=== PATIENT | female | born 1995 | race Caucasian/White ===

== ENCOUNTER 2017-11-01 00:24 | Inpatient (IN) | payer BC, OTHER ==
[~2017-11-01] VITALS: Ht 162.6 cm; Wt 81.0 kg
[2017-11-01] VITALS (21 sets, daily range): BP systolic 104–152; BP diastolic 70–88
[2017-11-01] MEDS ORDERED: normal saline 1000ML IV soln IVB ONE (00:35)
[2017-11-01 00:46] LABS: ABG BASE EXCESS -6.6 mmol/L (-2.0-3.0); ABG HCO3 20.4 mmol/L (22.0-26.0); ABG OXYGEN SATURATION 97.6 % (95-98); ABG PH (T) 7.257 (7.350-7.450); ABG PO2 (T) 130.6 mmHg (83-108); FCOHb 1.6 % (0.5-1.5); FMetHb 0.3 % (0.3-1.12); FO2Hb 95.7 % (94-100); PATIENT TEMPERATURE 37.2; PEEP 5 cm H2O; RESPIRATORY RATE 16 b/min; RESPIRATORY RATE (OBSERVED) 16 b/min; TIDAL VOLUME 400 mL
[2017-11-01] MEDS ORDERED: ALPR-164 PO (00:49)
[2017-11-01] MEDS ORDERED: LAMO25TA PO (00:49)
[2017-11-01] MEDS ORDERED: VENL-191 PO (00:49)
[2017-11-01] MEDS ORDERED: ZOLP5TAB8 PO (00:49)
[2017-11-01] MEDS: propofol 1000mg/100ml bottle 100 ML IV PRN ×2 (00:52→05:42)
[2017-11-01 01:06] LABS: URINE HCG NEGATIVE (NEG)
[2017-11-01 01:11] LABS: BASOPHILS % (AUTO) 0.5 % (0-1); EOSINOPHILS # (AUTO) 0.1 X10'3 (0-0.9); HEMATOCRIT 35.7 % (35.0-45.0); HEMOGLOBIN 12.4 g/dl (12.0-16.0); LYMPHOCYTES # (AUTO) 3.2 X10'3 (1.1-4.8); LYMPHOCYTES % (AUTO) 36.2 % (21-51); MEAN CORPUSCULAR HEMOGLOBIN 31.1 PG (27.0-31.0); MEAN CORPUSCULAR HGB CONC 34.7 % (33.0-36.5); MEAN CORPUSCULAR VOLUME 89.6 FL (78-98); MEAN PLATELET VOLUME 8.5 FL (7.4-10.4); MONOCYTES # (AUTO) 0.8 X10'3 (0-0.9); MONOCYTES % (AUTO) 8.9 % (2-12); NEUTROPHILS # (AUTO) 4.6 X10'3 (1.8-7.7); NEUTROPHILS % (AUTO) 53.4 % (42-75); PLATELET COUNT 273 X10'3 (140-440); RED BLOOD COUNT 3.99 X10'6 (4.20-5.60); RED CELL DISTRIBUTION WIDTH 12.3 % (11.5-14.5); WHITE BLOOD COUNT 8.7 X10'3 (4.5-11.0)
[2017-11-01 01:16] LABS: ALANINE AMINOTRANSFERASE 39 U/L (12-78); ALBUMIN 3.6 G/DL (3.4-5.0); ALBUMIN/GLOBULIN RATIO 1.1 (1.1-1.5); ALKALINE PHOSPHATASE 64 IU/L (20-180); ANION GAP 12 (8-16); ASPARTATE AMINO TRANSFERASE 38 U/L (10-37); BILIRUBIN,TOTAL 0.1 MG/DL (0.1-1.0); BLOOD UREA NITROGEN 6 MG/DL (7-18); CALCIUM 7.7 MG/DL (8.5-10.1); CHLORIDE 108 MMOL/L (99-107); CREATININE 0.86 MG/DL (0.40-0.90); GLUCOSE 95 MG/DL (70-104); POTASSIUM 3.6 MMOL/L (3.5-5.1); SODIUM 145 MMOL/L (135-145); TOTAL CARBON DIOXIDE 24.8 MMOL/L (24-32); TOTAL PROTEIN 6.8 G/DL (6.4-8.2); eGFR 84 ML/MIN
[2017-11-01 01:17] LABS: CLARITY,URINE CLEAR (Clear); COLOR,URINE YELLOW (Yellow); GLUCOSE, URINE NEGATIVE (Neg); KETONES,URINE NEGATIVE (Neg); LEUKOCYTE ESTERASE ,URINE NEGATIVE (Neg); NITRITES, URINE NEGATIVE (Neg); OCCULT BLOOD,URINE SMALL (Neg); PROTEIN,URINE NEGATIVE (Neg); UROBILINOGEN,URINE 0.2 E.U/dL (0.2-1.0)
[2017-11-01 01:19] LABS: URINE AMPHETAMINE SCREEN NEGATIVE (Neg); URINE BARBITUATE SCREEN NEGATIVE (Neg); URINE BENZODIAZEPINES SCREEN POSITIVE (Neg); URINE CANNABINOID SCREEN NEGATIVE (Neg); URINE COCAINE SCREEN NEGATIVE (Neg); URINE METHADONE SCREEN NEGATIVE (Neg); URINE OPIATE SCREEN NEGATIVE (Neg); URINE PHENCYCLIDINE SCREEN NEGATIVE (Neg)
[2017-11-01 01:24] LABS: UA COLLECTION TYPE CLN CATCH MIDSTREAM
[2017-11-01 01:25] LABS: SQUAMOUS EPITHELIAL CELL,UR FEW /LPF (FEW); WBC,URINE 0-4 /HPF (0-4)
[2017-11-01 01:26] LABS: ETHANOL 0.159 GM/DL (0.0-0.010); MAGNESIUM 1.8 MG/DL (1.5-2.4); PHOSPHORUS 3.2 MG/DL (2.3-4.5)
[2017-11-01 01:26] LABS: BACTERIA,URINE FEW /HPF (Neg)
[2017-11-01 01:27] LABS: ACETAMINOPHEN < 2.0 UG/ML (10-30)
[2017-11-01 01:27] LABS: AMORPHOUS URATES 1+
[2017-11-01] MEDS ORDERED: propofol 1000mg/100ml bottle 100 ML IV PRN (01:41)
[2017-11-01] MEDS ORDERED: magnesium 4gm in 100ml NS 100 ML IV PRN (01:45)
[2017-11-01] MEDS ORDERED: magnesium hydroxide 30ml (MOM) UD suspension PO PRN (01:45)
[2017-11-01] MEDS ORDERED: potassium Cl 40MEQ/250ML bag 250 ML IV PRN (01:45)
[2017-11-01] MEDS ORDERED: magnesium Cl slow-release 64mg tablet PO PRN (01:45)
[2017-11-01] MEDS: K, MAG and/or Phos replacement - Verify level? MC SCH ×2 (01:45→08:49)
[2017-11-01] MEDS ORDERED: potassium Cl 40MEQ/250ML bag 250 ML IV SCH (01:45)
[2017-11-01] MEDS ORDERED: morphine 4 MG/ML inj SYRINge IV PRN (01:45)
[2017-11-01] MEDS ORDERED: acetaminophen 325mg tablet PO PRN (01:45)
[2017-11-01] MEDS ORDERED: magnesium 2GM in 50ml NS 50 ML IV PRN (01:45)
[2017-11-01] MEDS ORDERED: potassium Cl 20 mEq SR tablet PO PRN (01:45)
[2017-11-01] MEDS: normal saline 1000ml 1,000 ML IV SCH ×3 (01:57→20:31)
[2017-11-01] MEDS ORDERED: LORazepam 2 mg/ml vial ONE (03:36)
[2017-11-01] MEDS: LORazepam 2 mg/ml vial IV PRN ×2 (03:44→07:17)
[2017-11-01 04:35] LABS: ABG BASE EXCESS 0.1 mmol/L (-2.0-3.0); ABG HCO3 22.1 mmol/L (22.0-26.0); ABG OXYGEN SATURATION 96.9 % (95-98); ABG PCO2 (T) 30.2 mmHg (32.0-45.0); ABG PH (T) 7.488 (7.350-7.450); ABG PO2 (T) 84.8 mmHg (83-108); ALLEN'S TEST Positive; FCOHb 0.3 % (0.5-1.5); FMetHb 0.3 % (0.3-1.12); FO2Hb 96.3 % (94-100); PATIENT TEMPERATURE 38.3; PEEP 5 cm H2O; RESPIRATORY RATE 18 b/min; RESPIRATORY RATE (OBSERVED) 18 b/min; TIDAL VOLUME 400 mL; TOTAL HEMOGLOBIN 12.7 G/dl (12.0-16.0)
[2017-11-01 07:41] LABS: ALANINE AMINOTRANSFERASE 47 U/L (12-78); ALBUMIN 3.4 G/DL (3.4-5.0); ALBUMIN/GLOBULIN RATIO 1.1 (1.1-1.5); ALKALINE PHOSPHATASE 60 IU/L (20-180); ANION GAP 12 (8-16); ASPARTATE AMINO TRANSFERASE 75 U/L (10-37); BILIRUBIN,TOTAL 0.2 MG/DL (0.1-1.0); BLOOD UREA NITROGEN 5 MG/DL (7-18); BUN/CREATININE RATIO 5.7 (6.6-38.0); CHLORIDE 111 MMOL/L (99-107); CREATININE 0.88 MG/DL (0.40-0.90); GLUCOSE 88 MG/DL (70-104); MAGNESIUM 1.6 MG/DL (1.5-2.4); POTASSIUM 3.8 MMOL/L (3.5-5.1); SODIUM 146 MMOL/L (135-145); TOTAL CARBON DIOXIDE 22.6 MMOL/L (24-32); TOTAL PROTEIN 6.4 G/DL (6.4-8.2); eGFR 82 ML/MIN
[2017-11-01] MEDS ORDERED: rocuronium 10mg/ml inj IV ONE (08:00)
[2017-11-01] MEDS ORDERED: etomidate 2mg/ml inj. ONE (08:00)
[2017-11-01] MEDS: pantoprazole 40 MG vial IV SCH (08:48)
[2017-11-01] MEDS: acetaminophen 325mg tablet PO PRN (08:49)
[2017-11-01] MEDS ORDERED: racepinephrine 11.25mg/0.5ml nebule NEB PRN (12:05)
[2017-11-01] MEDS ORDERED: ipratropium/albuterol 3ml nebule NEB PRN (12:05)
[2017-11-01] MEDS: ipratropium/albuterol 3ml nebule NEB SCH ×2 (15:00→20:33)
[2017-11-02] VITALS (24 sets, daily range): BP systolic 92–142; BP diastolic 49–90
[2017-11-02] MEDS: mineral oil/petrolatum ophthal oint EACHEYE SCH ×4 (02:00→18:59)
[2017-11-02] MEDS: ipratropium/albuterol 3ml nebule NEB SCH ×2 (03:42→09:00)
[2017-11-02 05:20] LABS: BASOPHILS % (AUTO) 0.4 % (0-1); EOSINOPHILS # (AUTO) 0.3 X10'3 (0-0.9); EOSINOPHILS % (AUTO) 2.6 % (0-6); HEMATOCRIT 35.7 % (35.0-45.0); HEMOGLOBIN 11.9 g/dl (12.0-16.0); LYMPHOCYTES # (AUTO) 2.3 X10'3 (1.1-4.8); LYMPHOCYTES % (AUTO) 17.6 % (21-51); MEAN CORPUSCULAR HEMOGLOBIN 30.4 PG (27.0-31.0); MEAN CORPUSCULAR HGB CONC 33.3 % (33.0-36.5); MEAN CORPUSCULAR VOLUME 91.2 FL (78-98); MEAN PLATELET VOLUME 8.4 FL (7.4-10.4); MONOCYTES % (AUTO) 7.6 % (2-12); NEUTROPHILS # (AUTO) 9.3 X10'3 (1.8-7.7); NEUTROPHILS % (AUTO) 71.8 % (42-75); PLATELET COUNT 223 X10'3 (140-440); RED BLOOD COUNT 3.91 X10'6 (4.20-5.60); RED CELL DISTRIBUTION WIDTH 13.3 % (11.5-14.5); WHITE BLOOD COUNT 12.9 X10'3 (4.5-11.0)
[2017-11-02 05:56] LABS: ALANINE AMINOTRANSFERASE 112 U/L (12-78); ALBUMIN 3.3 G/DL (3.4-5.0); ALBUMIN/GLOBULIN RATIO 1.1 (1.1-1.5); ALKALINE PHOSPHATASE 60 IU/L (20-180); ANION GAP 10 (8-16); ASPARTATE AMINO TRANSFERASE 348 U/L (10-37); BILIRUBIN,TOTAL 0.7 MG/DL (0.1-1.0); BLOOD UREA NITROGEN 4 MG/DL (7-18); BUN/CREATININE RATIO 5.9 (6.6-38.0); CALCIUM 8.2 MG/DL (8.5-10.1); CHLORIDE 106 MMOL/L (99-107); CREATININE 0.68 MG/DL (0.40-0.90); GLUCOSE 79 MG/DL (70-104); MAGNESIUM 1.9 MG/DL (1.5-2.4); PHOSPHORUS 2.7 MG/DL (2.3-4.5); POTASSIUM 3.1 MMOL/L (3.5-5.1); SODIUM 141 MMOL/L (135-145); TOTAL PROTEIN 6.4 G/DL (6.4-8.2); eGFR > 90 ML/MIN
[2017-11-02] MEDS: potassium Cl 20 mEq SR tablet PO PRN (06:25)
[2017-11-02] MEDS: normal saline 1000ml 1,000 ML IV SCH ×3 (06:25→22:19)
[2017-11-02] MEDS: ondansetron/PF 4mg/2ml inj IV PRN ×2 (06:30→12:17)
[2017-11-02] MEDS ORDERED: potassium Cl 40MEQ/NS 500ml 500 ML IV PRN ×2 (06:45)
[2017-11-02] MEDS: K, MAG and/or Phos replacement - Verify level? MC SCH (07:40)
[2017-11-02] MEDS: pantoprazole 40 MG vial IV SCH (08:13)
[2017-11-02] MEDS: morphine 4 MG/ML inj SYRINge IV PRN (18:59)
[2017-11-02] MEDS: acetaminophen 325mg tablet PO PRN (20:58)
[2017-11-03] VITALS (24 sets, daily range): BP systolic 94–127; BP diastolic 46–97
[2017-11-03] MEDS: mineral oil/petrolatum ophthal oint EACHEYE SCH ×4 (01:06→20:00)
[2017-11-03 05:43] LABS: BASOPHILS % (AUTO) 0.6 % (0-1); EOSINOPHILS # (AUTO) 0.2 X10'3 (0-0.9); EOSINOPHILS % (AUTO) 2.3 % (0-6); HEMATOCRIT 34.5 % (35.0-45.0); HEMOGLOBIN 11.7 g/dl (12.0-16.0); LYMPHOCYTES % (AUTO) 26.2 % (21-51); MEAN CORPUSCULAR HEMOGLOBIN 30.5 PG (27.0-31.0); MEAN CORPUSCULAR HGB CONC 33.8 % (33.0-36.5); MEAN CORPUSCULAR VOLUME 90.2 FL (78-98); MEAN PLATELET VOLUME 8.4 FL (7.4-10.4); MONOCYTES # (AUTO) 0.5 X10'3 (0-0.9); MONOCYTES % (AUTO) 6.9 % (2-12); NEUTROPHILS # (AUTO) 4.8 X10'3 (1.8-7.7); PLATELET COUNT 205 X10'3 (140-440); RED BLOOD COUNT 3.82 X10'6 (4.20-5.60); RED CELL DISTRIBUTION WIDTH 13.1 % (11.5-14.5); WHITE BLOOD COUNT 7.5 X10'3 (4.5-11.0)
[2017-11-03 05:55] LABS: ALANINE AMINOTRANSFERASE 112 U/L (12-78); ALBUMIN/GLOBULIN RATIO 0.9 (1.1-1.5); ALKALINE PHOSPHATASE 60 IU/L (20-180); ANION GAP 8 (8-16); ASPARTATE AMINO TRANSFERASE 271 U/L (10-37); BILIRUBIN,TOTAL 0.3 MG/DL (0.1-1.0); BLOOD UREA NITROGEN 4 MG/DL (7-18); BUN/CREATININE RATIO 5.2 (6.6-38.0); CALCIUM 8.6 MG/DL (8.5-10.1); CHLORIDE 107 MMOL/L (99-107); CREATININE 0.77 MG/DL (0.40-0.90); GLUCOSE 91 MG/DL (70-104); MAGNESIUM 2.1 MG/DL (1.5-2.4); PHOSPHORUS 3.8 MG/DL (2.3-4.5); POTASSIUM 3.5 MMOL/L (3.5-5.1); SODIUM 142 MMOL/L (135-145); TOTAL CARBON DIOXIDE 26.7 MMOL/L (24-32); TOTAL PROTEIN 6.3 G/DL (6.4-8.2); eGFR > 90 ML/MIN
[2017-11-03] MEDS: K, MAG and/or Phos replacement - Verify level? MC SCH (08:12)
[2017-11-03] MEDS: pantoprazole 40mg Tablet.DR PO SCH (08:28)
[2017-11-03] MEDS: acetaminophen 325mg tablet PO PRN (08:46)
[2017-11-03] MEDS: ondansetron/PF 4mg/2ml inj IV PRN (08:46)
[2017-11-03] MEDS: morphine 4 MG/ML inj SYRINge IV PRN ×2 (20:17→21:51)
[2017-11-04] VITALS (16 sets, daily range): BP systolic 104–145; BP diastolic 52–83
[2017-11-04] MEDS: mineral oil/petrolatum ophthal oint EACHEYE SCH ×3 (01:19→14:00)
[2017-11-04 05:16] LABS: BASOPHILS % (AUTO) 0.5 % (0-1); EOSINOPHILS # (AUTO) 0.3 X10'3 (0-0.9); EOSINOPHILS % (AUTO) 3.7 % (0-6); HEMATOCRIT 37.5 % (35.0-45.0); HEMOGLOBIN 12.7 g/dl (12.0-16.0); LYMPHOCYTES # (AUTO) 1.9 X10'3 (1.1-4.8); LYMPHOCYTES % (AUTO) 23.8 % (21-51); MEAN CORPUSCULAR HEMOGLOBIN 30.7 PG (27.0-31.0); MEAN CORPUSCULAR VOLUME 90.4 FL (78-98); MEAN PLATELET VOLUME 8.3 FL (7.4-10.4); MONOCYTES # (AUTO) 0.6 X10'3 (0-0.9); MONOCYTES % (AUTO) 7.5 % (2-12); NEUTROPHILS # (AUTO) 5.1 X10'3 (1.8-7.7); NEUTROPHILS % (AUTO) 64.5 % (42-75); PLATELET COUNT 258 X10'3 (140-440); RED BLOOD COUNT 4.15 X10'6 (4.20-5.60); RED CELL DISTRIBUTION WIDTH 13.5 % (11.5-14.5); WHITE BLOOD COUNT 7.9 X10'3 (4.5-11.0)
[2017-11-04 06:14] LABS: ALANINE AMINOTRANSFERASE 132 U/L (12-78); ALBUMIN 3.4 G/DL (3.4-5.0); ALBUMIN/GLOBULIN RATIO 0.9 (1.1-1.5); ALKALINE PHOSPHATASE 65 IU/L (20-180); ANION GAP 10 (8-16); ASPARTATE AMINO TRANSFERASE 210 U/L (10-37); BILIRUBIN,TOTAL 0.2 MG/DL (0.1-1.0); BLOOD UREA NITROGEN 6 MG/DL (7-18); CHLORIDE 105 MMOL/L (99-107); CREATININE 0.75 MG/DL (0.40-0.90); GLUCOSE 89 MG/DL (70-104); PHOSPHORUS 4.9 MG/DL (2.3-4.5); POTASSIUM 3.3 MMOL/L (3.5-5.1); SODIUM 142 MMOL/L (135-145); TOTAL CARBON DIOXIDE 26.9 MMOL/L (24-32); eGFR > 90 ML/MIN
[2017-11-04] MEDS: K, MAG and/or Phos replacement - Verify level? MC SCH (07:48)
[2017-11-04] MEDS: potassium Cl 20 mEq SR tablet PO PRN (08:07)
[2017-11-04] MEDS: pantoprazole 40mg Tablet.DR PO SCH (08:07)
== END 2017-11-04 15:01 | disposition home or self-care (01) | DRG 917 ==
LOC: ER 00:25 → CICU 2S 01:41 → CMPBEDREQ 03:55
PROVIDERS: ADMIT Internal Medicine Critical Care Medicine
PROC: 5A1935Z Respiratory Ventilation, Less than 24 Consecutive Hours (ICD-10-PCS; principal; 2017-11-01)
PROC: 0BH17EZ Insertion of Endotracheal Airway into Trachea, Via Natural or Artificial Opening (ICD-10-PCS; 2017-11-01)
DX: T50.992A Poisoning by other drugs, medicaments and biological substances, intentional self-harm, initial encounter (principal); J96.00 Acute respiratory failure, unspecified whether with hypoxia or hypercapnia; R56.9 Unspecified convulsions; F20.9 Schizophrenia, unspecified; F31.9 Bipolar disorder, unspecified; Z79.899 Other long term (current) drug therapy; Z91.5 Personal history of self-harm; Y92.89 Other specified places as the place of occurrence of the external cause
CPT/HCPCS: 36415; 36600; 71045; 80053; 80178; 80305; 80320; 80329; 81001; 81025; 82330; 82542; 82553; 82803; 82948; 83605; 83735; 84100; 84443; 85018; 85025; 87070; 93005; 94002; 94003; 94640; 94760; 96360; 99291; A6213; C9113; J2060; J2270; J2405; J2704; J3480; J3490; J7030

== ENCOUNTER 2018-03-08 22:19 | Emergency (ER) | payer MEDICAID, OTHER ==
[~2018-03-08] VITALS: Ht 162.6 cm; Wt 72.0 kg
[~2018-03-08 22:19] MED LIST: ALPR-164 PO; LAMO25TA PO; VENL-191 PO; ZOLP5TAB8 PO
[2018-03-08 22:28] VITALS: BP 131/78
[2018-03-08 23:28] LABS: BASOPHILS % (AUTO) 0.2 % (0-1); EOSINOPHILS # (AUTO) 0.1 X10'3 (0-0.9); EOSINOPHILS % (AUTO) 1.5 % (0-6); HEMATOCRIT 38.5 % (35.0-45.0); LYMPHOCYTES # (AUTO) 3.1 X10'3 (1.1-4.8); MEAN CORPUSCULAR HEMOGLOBIN 30.5 PG (27.0-31.0); MEAN CORPUSCULAR HGB CONC 33.8 % (33.0-36.5); MEAN CORPUSCULAR VOLUME 90.3 FL (78-98); MEAN PLATELET VOLUME 8.3 FL (7.4-10.4); MONOCYTES # (AUTO) 0.7 X10'3 (0-0.9); MONOCYTES % (AUTO) 7.7 % (2-12); NEUTROPHILS # (AUTO) 5.1 X10'3 (1.8-7.7); NEUTROPHILS % (AUTO) 56.6 % (42-75); PLATELET COUNT 256 X10'3 (140-440); RED BLOOD COUNT 4.26 X10'6 (4.20-5.60); RED CELL DISTRIBUTION WIDTH 13.3 % (11.5-14.5)
[2018-03-08 23:44] LABS: ALANINE AMINOTRANSFERASE 39 U/L (12-78); ALBUMIN 4.2 G/DL (3.4-5.0); ALBUMIN/GLOBULIN RATIO 1.3 (1.1-1.5); ALKALINE PHOSPHATASE 69 IU/L (46-116); ANION GAP 14 (8-16); ASPARTATE AMINO TRANSFERASE 33 U/L (10-37); BILIRUBIN,TOTAL 0.3 MG/DL (0.1-1.0); BLOOD UREA NITROGEN 10 MG/DL (7-18); BUN/CREATININE RATIO 14.1 (6.6-38.0); CALCIUM 8.7 MG/DL (8.5-10.1); CHLORIDE 103 MMOL/L (99-107); CREATININE 0.71 MG/DL (0.40-0.90); GLUCOSE 81 MG/DL (70-104); POTASSIUM 3.8 MMOL/L (3.5-5.1); SODIUM 141 MMOL/L (135-145); TOTAL CARBON DIOXIDE 24.3 MMOL/L (24-32); TOTAL PROTEIN 7.4 G/DL (6.4-8.2); eGFR > 90 ML/MIN
[2018-03-08 23:54] LABS: ETHANOL < 0.010 GM/DL (0.0-0.010)
[2018-03-08 23:59] LABS: ACETAMINOPHEN < 2.0 UG/ML (10-30)
[2018-03-09 00:41] LABS: URINE HCG NEGATIVE (NEG)
[2018-03-09 00:49] LABS: CLARITY,URINE CLEAR (Clear); COLOR,URINE YELLOW (Yellow); GLUCOSE, URINE NEGATIVE (Neg); KETONES,URINE 40 mg/dl (Neg); LEUKOCYTE ESTERASE ,URINE NEGATIVE (Neg); NITRITES, URINE NEGATIVE (Neg); OCCULT BLOOD,URINE MODERATE (Neg); PROTEIN,URINE NEGATIVE (Neg); UROBILINOGEN,URINE 0.2 E.U/dL (0.2-1.0)
[2018-03-09 00:50] LABS: UA COLLECTION TYPE CLN CATCH MIDSTREAM
[2018-03-09 00:51] LABS: URINE AMPHETAMINE SCREEN POSITIVE (Neg); URINE BARBITUATE SCREEN NEGATIVE (Neg); URINE BENZODIAZEPINES SCREEN POSITIVE (Neg); URINE CANNABINOID SCREEN NEGATIVE (Neg); URINE COCAINE SCREEN NEGATIVE (Neg); URINE METHADONE SCREEN NEGATIVE (Neg); URINE OPIATE SCREEN POSITIVE (Neg); URINE PHENCYCLIDINE SCREEN NEGATIVE (Neg)
[2018-03-09 00:58] LABS: BACTERIA,URINE 3+ /HPF (Neg); MUCUS STRANDS MANY /LPF (Neg); SQUAMOUS EPITHELIAL CELL,UR MANY /LPF (FEW)
== END 2018-03-09 04:19 | disposition home or self-care (01) ==
LOC: ER 22:20
DX: F19.10 Other psychoactive substance abuse, uncomplicated (principal); F31.9 Bipolar disorder, unspecified; F17.210 Nicotine dependence, cigarettes, uncomplicated; Z79.899 Other long term (current) drug therapy
CPT/HCPCS: 36415; 80053; 80305; 80320; 80329; 81001; 81025; 84443; 85025; 99284

== ENCOUNTER 2018-06-05 12:47 | Emergency (ER) | payer MEDICAID ==
[~2018-06-05] VITALS: Ht 162.6 cm; Wt 55.0 kg
[2018-06-05 14:54] LABS: URINE HCG NEGATIVE (NEG)
[2018-06-05 15:09] LABS: URINE AMPHETAMINE SCREEN NEGATIVE (Neg); URINE BARBITUATE SCREEN NEGATIVE (Neg); URINE BENZODIAZEPINES SCREEN POSITIVE (Neg); URINE CANNABINOID SCREEN POSITIVE (Neg); URINE COCAINE SCREEN POSITIVE (Neg); URINE METHADONE SCREEN NEGATIVE (Neg); URINE OPIATE SCREEN POSITIVE (Neg); URINE PHENCYCLIDINE SCREEN NEGATIVE (Neg)
[2018-06-05 15:18] LABS: BASOPHILS % (AUTO) 0.1 % (0-1); EOSINOPHILS # (AUTO) 0.1 X10'3 (0-0.9); EOSINOPHILS % (AUTO) 1.1 % (0-6); HEMATOCRIT 40.1 % (35.0-45.0); HEMOGLOBIN 13.4 g/dl (12.0-16.0); LYMPHOCYTES # (AUTO) 1.8 X10'3 (1.1-4.8); LYMPHOCYTES % (AUTO) 16.5 % (21-51); MEAN CORPUSCULAR HEMOGLOBIN 30.4 PG (27.0-31.0); MEAN CORPUSCULAR HGB CONC 33.4 % (33.0-36.5); MEAN CORPUSCULAR VOLUME 91.2 FL (78-98); MEAN PLATELET VOLUME 8.1 FL (7.4-10.4); MONOCYTES # (AUTO) 0.6 X10'3 (0-0.9); MONOCYTES % (AUTO) 5.4 % (2-12); NEUTROPHILS # (AUTO) 8.2 X10'3 (1.8-7.7); NEUTROPHILS % (AUTO) 76.9 % (42-75); PLATELET COUNT 476 X10'3 (140-440); RED CELL DISTRIBUTION WIDTH 13.8 % (11.5-14.5); WHITE BLOOD COUNT 10.7 X10'3 (4.5-11.0)
[2018-06-05 15:36] LABS: ALANINE AMINOTRANSFERASE 26 U/L (12-78); ALBUMIN 3.5 G/DL (3.4-5.0); ALBUMIN/GLOBULIN RATIO 0.8 (1.1-1.5); ALKALINE PHOSPHATASE 72 IU/L (46-116); ANION GAP 11 (8-16); ASPARTATE AMINO TRANSFERASE 19 U/L (10-37); BILIRUBIN,TOTAL 0.2 MG/DL (0.1-1.0); BLOOD UREA NITROGEN 4 MG/DL (7-18); BUN/CREATININE RATIO 5.3 (6.6-38.0); CALCIUM 9.3 MG/DL (8.5-10.1); CHLORIDE 103 MMOL/L (99-107); CREATININE 0.75 MG/DL (0.40-0.90); ETHANOL < 0.010 GM/DL (0.0-0.010); GLUCOSE 88 MG/DL (70-104); SODIUM 142 MMOL/L (135-145); TOTAL CARBON DIOXIDE 28.1 MMOL/L (24-32); eGFR > 90 ML/MIN
[2018-06-05] MEDS ORDERED: ASEN10TA9 PO (15:55)
[2018-06-05] MEDS ORDERED: MIRT30TA8 PO (15:55)
[2018-06-05] MEDS ORDERED: LORA2TAB PO (15:55)
[2018-06-05] MEDS ORDERED: BUPR300T6 PO (15:55)
[2018-06-05] MEDS ORDERED: potassium Cl 20 mEq SR tablet PO STA (16:27)
[2018-06-05] MEDS: buPROPion SR 150mg tablet PO SCH (20:00)
[2018-06-05] MEDS: LORazepam 1 MG tablet PO SCH (20:22)
[2018-06-05] MEDS ORDERED: asenapine 5mg TAB.SUBL SL SCH (21:00)
[2018-06-05] MEDS ORDERED: mirtazapine 15mg tablet PO SCH ×2 (21:00)
[2018-06-06 06:14] VITALS: BP 115/73
[2018-06-06] MEDS: LORazepam 1 MG tablet PO SCH (08:33)
[2018-06-06] MEDS: buPROPion SR 150mg tablet PO SCH (08:48)
[2018-06-06] MEDS ORDERED: ASENAPINE SL SCH (09:43)
[2018-06-06] MEDS ORDERED: [UNRECOGNIZED DRUG - OTHER] SL SCH (09:43)
== END 2018-06-06 15:37 ==
LOC: ER 12:47
DX: F32.9 Major depressive disorder, single episode, unspecified (principal); R45.851 Suicidal ideations; F12.90 Cannabis use, unspecified, uncomplicated; F14.90 Cocaine use, unspecified, uncomplicated; F11.90 Opioid use, unspecified, uncomplicated; F17.200 Nicotine dependence, unspecified, uncomplicated; Z79.899 Other long term (current) drug therapy
CPT/HCPCS: 36415; 80053; 80305; 80320; 81025; 84443; 85025; 99285

== ENCOUNTER 2019-04-12 13:16 | Emergency (ER) | payer MEDICAID ==
[~2019-04-12] VITALS: Ht 160 cm; Wt 59.0 kg
[~2019-04-12 13:16] MED LIST changes: -ALPR-164 PO; +ATI1T PO; +BUPR-84 PO; -LAMO25TA PO; +NICO2GUM29 BC; +TRAZ-251 PO; -VENL-191 PO; +VORT10TA PO; -ZOLP5TAB8 PO
--- NOTE | 2019-04-12 17:37 | NUR ---
The patient was brought back from triage. She is a 24 year old young woman reporting feeling suicidal and wnting to OD on pills. Reports two 5250 holds in the past, depression, panic, anxiety and Bipolar disorder. She takes Wellbutrin 150 mgs daily, restoril 30 mgs (last 3 days ago), Xanax 2mg daily (last 1 week ago) and uses Heroin 1G per day ( last yesterday at 2pm.) She is experiencing withdrawal symptoms of eye watering, runny nose, sweating, chills, vomited x3 today. She reports feeling suicidal and is seeking treatment in a facility. Parents at bedside. Calm and cooperative.
[2019-04-12] MEDS ORDERED: buprenorphine/naloxone 8mg/2mg SL tablet SL PRN (17:50)
[2019-04-12] MEDS ORDERED: buprenorphine/naloxone 2-0.5mg sublingual tablet SL PRN ×2 (17:57)
[2019-04-12 18:01] LABS: CLARITY,URINE SLIGHTLY CLOUDY (Clear); COLOR,URINE YELLOW (Yellow); GLUCOSE, URINE NEGATIVE (Neg); KETONES,URINE NEGATIVE (Neg); LEUKOCYTE ESTERASE ,URINE NEGATIVE (Neg); NITRITES, URINE NEGATIVE (Neg); OCCULT BLOOD,URINE NEGATIVE (Neg); PH,URINE 8.5 (4.8-8.0); PROTEIN,URINE NEGATIVE (Neg); UROBILINOGEN,URINE 0.2 E.U/dL (0.2-1.0)
[2019-04-12 18:03] LABS: UA COLLECTION TYPE CLN CATCH MIDSTREAM; URINE HCG NEGATIVE (NEG)
[2019-04-12 18:07] LABS: URINE AMPHETAMINE SCREEN NEGATIVE (Neg); URINE BARBITUATE SCREEN NEGATIVE (Neg); URINE BENZODIAZEPINES SCREEN POSITIVE (Neg); URINE CANNABINOID SCREEN NEGATIVE (Neg); URINE COCAINE SCREEN NEGATIVE (Neg); URINE METHADONE SCREEN NEGATIVE (Neg); URINE OPIATE SCREEN POSITIVE (Neg); URINE PHENCYCLIDINE SCREEN NEGATIVE (Neg)
[2019-04-12 18:11] LABS: SQUAMOUS EPITHELIAL CELL,UR MANY /LPF (FEW)
[2019-04-12 18:12] LABS: RBC,URINE 0-2 /HPF (0-2)
[2019-04-12 18:13] LABS: ALANINE AMINOTRANSFERASE 31 U/L (12-78); ALBUMIN 3.9 G/DL (3.4-5.0); ALBUMIN/GLOBULIN RATIO 0.9 (1.1-1.5); ALKALINE PHOSPHATASE 91 IU/L (46-116); ANION GAP 8 (8-16); ASPARTATE AMINO TRANSFERASE 23 U/L (10-37); BILIRUBIN,TOTAL 0.3 MG/DL (0.1-1.0); BLOOD UREA NITROGEN 8 MG/DL (7-18); BUN/CREATININE RATIO 10.7 (6.6-38.0); CALCIUM 9.5 MG/DL (8.5-10.1); CHLORIDE 105 MMOL/L (99-107); CREATININE 0.75 MG/DL (0.40-0.90); GLUCOSE 76 MG/DL (70-104); POTASSIUM 4.9 MMOL/L (3.5-5.1); SODIUM 142 MMOL/L (135-145); TOTAL CARBON DIOXIDE 29.3 MMOL/L (24-32); TOTAL PROTEIN 8.4 G/DL (6.4-8.2); eGFR > 90 ML/MIN
[2019-04-12 18:13] LABS: BACTERIA,URINE FEW /HPF (Neg); WBC,URINE 0-4 /HPF (0-4)
[2019-04-12 18:14] LABS: WBC CLUMPS,URINE FEW /HPF (NEGATIVE)
[2019-04-12] MEDS: buprenorphine/naloxone 8MG-2MG SUBlingual film SL PRN (18:15)
[2019-04-12 18:17] LABS: BASOPHILS % (AUTO) 0.2 % (0-1); EOSINOPHILS % (AUTO) 0.2 % (0-6); HEMOGLOBIN 14.1 g/dl (12.0-16.0); LYMPHOCYTES # (AUTO) 1.4 X10'3 (1.1-4.8); LYMPHOCYTES % (AUTO) 15.6 % (21-51); MEAN CORPUSCULAR HEMOGLOBIN 30.6 PG (27.0-31.0); MEAN CORPUSCULAR HGB CONC 33.7 g/dL (33.0-36.5); MEAN PLATELET VOLUME 8.4 FL (7.4-10.4); MONOCYTES # (AUTO) 0.3 X10'3 (0-0.9); MONOCYTES % (AUTO) 3.8 % (2-12); NEUTROPHILS # (AUTO) 7.3 X10'3 (1.8-7.7); NEUTROPHILS % (AUTO) 80.2 % (42-75); PLATELET COUNT 324 X10'3 (140-440); RED BLOOD COUNT 4.61 X10'6 (4.20-5.60); RED CELL DISTRIBUTION WIDTH 14.7 % (11.5-14.5); WHITE BLOOD COUNT 9.1 X10'3 (4.5-11.0)
[2019-04-12 18:22] LABS: ETHANOL < 0.010 GM/DL (0.0-0.010)
--- NOTE | 2019-04-12 18:47 | NUR ---
Obtained new urine sample from pt as first one was contaminated. Pt. changed into green scrubs and returned back to bed, parents at bedside. Pt. appears calm and cooperative.
[2019-04-12] MEDS ORDERED: ALPR-624 PO (19:27)
[2019-04-12] MEDS ORDERED: BUPR150T6 PO (19:27)
[2019-04-12] MEDS ORDERED: TEMA30CA5 PO (19:27)
--- NOTE | 2019-04-12 20:00 | NUR ---
Pt. laying in bed on her left side at this time, rr even and unlabored. No s/s of distress or Heroin withdrawals exhibited, will continue to monitor.
--- NOTE | 2019-04-12 20:46 | NUR ---
Pt. being evaluated by [facility] at this time, continues to be calm and cooperative.
[2019-04-12] MEDS ORDERED: temazepam 15mg capsule PO SCH (21:00)
[2019-04-12] MEDS: ALPRAZolam 0.5mg tablet PO PRN (21:50)
--- NOTE | 2019-04-12 21:59 | NUR ---
Pt. compliant with HS medication, and requests PRN Xanax for anxiety. Per [facility], pt. will be placed on a 5150, and pt. reports that she would like to be re-admitted to [facility] because it was helpful last time. 1:1 completed, pt. reports passive S/I, states, "I sort of have a plan, I would get the code for my dad's gun safe that he has at home." Pt. reports she last used Heroin yesterday, and feels like she is experiencing withdrawals, feels warm, however V/S are WNL. Pt. denies any nausea or diarrhea at this time, however voices understanding that she will report any further s/s of withdrawal to nursing staff. Pt. accepts HS snack, rr even and unlabored, and she remains calm and cooperative.
--- NOTE | 2019-04-13 00:09 | NUR ---
Pt. appears to be resting comfortably, laying on her left side at this time. RR even and unlabored.
--- NOTE | 2019-04-13 00:32 | NUR ---
Received call from Selvin Marshall in order to evaluate pt. for possible placement, they will review packet with MD and get back to us.
--- NOTE | 2019-04-13 01:58 | NUR ---
Pt. continues to sleep, laying on her left side at this time, rr even and unlabored.
[2019-04-13] MEDS: buprenorphine/naloxone 8MG-2MG SUBlingual film SL PRN (03:16)
--- NOTE | 2019-04-13 03:20 | NUR ---
Pt. awoke and requested PRN Suboxone SL film for heroin withdrawal s/s of cold sweats and body aches, temperature obtained and WNL, will continue to monitor.
--- NOTE | 2019-04-13 04:02 | NUR ---
Pt. asleep on her rt. side at this time, rr even and unlabored.
[2019-04-13 05:53] VITALS: BP 98/57
--- NOTE | 2019-04-13 05:53 | NUR ---
Pt. continues to sleep, laying on her rt. side at this time, will continue to monitor.
[2019-04-13] MEDS ORDERED: buprenorphine/naloxone 8MG-2MG SUBlingual film SL SCH (07:42)
[2019-04-13] MEDS ORDERED: buprenorphine/naloxone 2-0.5mg sublingual tablet SL PRN (07:45)
[2019-04-13] MEDS ORDERED: buPROPion SR 150mg tablet PO SCH (08:00)
[2019-04-13] MEDS: ALPRAZolam 0.5mg tablet PO PRN (08:41)
[2019-04-13] MEDS ORDERED: acetaminophen 325mg tablet PO ONE (13:05)
[2019-04-13] MEDS ORDERED: ibuprofen tablet 400 MG TABLET PO ONE (14:35)
[2019-04-13] MEDS ORDERED: BUPR1FIL3 SL ×2 (14:40)
[2019-04-14] MEDS ORDERED: buprenorphine/naloxone 8MG-2MG SUBlingual film SL SCH (08:00)
== END 2019-04-13 14:50 ==
LOC: ER 13:17
DX: F31.9 Bipolar disorder, unspecified (principal); R45.851 Suicidal ideations; F11.10 Opioid abuse, uncomplicated; F12.90 Cannabis use, unspecified, uncomplicated; F14.90 Cocaine use, unspecified, uncomplicated; Z79.899 Other long term (current) drug therapy
CPT/HCPCS: 36415; 80053; 80305; 80320; 81001; 81025; 84443; 85025; 99285

== ENCOUNTER 2019-04-13 15:12 | Inpatient (IN) | payer MEDICAID ==
[~2019-04-13] VITALS: Ht 160 cm; Wt 60.0 kg
[2019-04-13 15:00] VITALS: BP 92/60
[~2019-04-13 15:12] MED LIST changes: +ALPR-624 PO; -ATI1T PO; -BUPR-84 PO; +BUPR150T6 PO; +BUPR1FIL3 SL; -NICO2GUM29 BC; +TEMA30CA5 PO; -TRAZ-251 PO; -VORT10TA PO
[2019-04-13] MEDS ORDERED: NICOTINE POLACRILEX 2 MG LOZENGE MM PRN (15:20)
[2019-04-13] MEDS ORDERED: acetaminophen 325mg tablet PO PRN ×3 (15:20→15:32)
[2019-04-13] MEDS ORDERED: loperamide 2mg capsule PO PRN (15:20)
[2019-04-13] MEDS ORDERED: mag hydrox/Alum hydrox/simeth 30ml oral suspension PO PRN (15:20)
[2019-04-13] MEDS ORDERED: magnesium hydroxide 30ml (MOM) UD suspension PO PRN (15:20)
--- NOTE | 2019-04-13 16:07 | NUR ---
Admission note: Pt admitted at 1500 for DTS from our emergency department on 5150. Pt states she feels like ending her life and is constantly depressed everyday all day. Pt experienced panic attacks 2 weeks for 20 minutes. _t has tried to kill herself by OD on medications 2 years ago and was hospitalized a week. Pt tried to OD on Heroin Tuesday but passed out. Pt states she sits in front of her fathers gun acabinet tryibng to figure out how to get into in so she can use a gun to kill herself.
[2019-04-13] MEDS: LORazepam 1 MG tablet PO PRN (16:08)
[2019-04-13] MEDS ORDERED: ALPRAZolam 0.5mg tablet PO PRN (16:50)
[2019-04-13] MEDS ORDERED: buprenorphine/naloxone 8MG-2MG SUBlingual film SL PRN (16:50)
[2019-04-13 20:08] VITALS: BP 100/58
[2019-04-13] MEDS: hydrOXYzine 25 MG tablet PO PRN (20:30)
[2019-04-13] MEDS ORDERED: temazepam 15mg capsule PO SCH (21:00)
--- NOTE | 2019-04-14 00:45 | NUR ---
Nursing Progress Note: Legal hold:515 Client on voluntary/involuntary status for DTS. Report received from STACI Gilman with use of SBAR. Why are they here: Admission note: Pt admitted at 1500 for DTS from our emergency department on 5149. Pt states she feels like ending her life and is constantly depressed everyday all day. Pt experienced panic attacks 2 weeks for 20 minutes. _t has tried to kill herself by OD on medications 2 years ago and was hospitalized a week. Pt tried to OD on Heroin Tuesday but passed out. Pt states she sits in front of her fathers gun acabinet tryibng to figure out how to get into in so she can use a gun to kill herself. Assessment What has happened this shift:Patient is awake and well oriented. Patient socializes well with others. Parents arrived and visited, patient interacted well with them. Patient 1:1 in her room for interview. The patient tells this policy writer sales that she is feeling well save for some depression and coming down from using heroin. Patient states she has been using heroin off and on for about a year. Patient states a history of acute depression since age 17. "The heroin doesn't take the depression away, it just numbs things." Patients primary complaint is her anxiety. She desires suboxone and anti anxiety medications. Patient is cooperative with staff. She is also medication compliant. Patient denies S/I, H/I, or hallucinations at this point. S/I, H/I:Denies. A/VH:Denies Sleep:Will tally in am. ADL's:Will tally at 0500 hours. Group attendance:No group on maintenance supervisor 2nd shift. Were meds taken:Patient is medication compliant. Any med S/E None observed. Mental Status Exam Appearance:Well groomed, wearing green scrubs. Eye contact:Direct. Behavior:Quiet and cooperative. Speech: Normal tone, rate, and rhythm. Mood:Good mood, save for some depression and anxiety. Affect:Quiet. Thought process: getting into rehab, treatment for depression. Thought Content: Linear. Cognition: Good. Insight:Fair. Judgment:Poor. Interventions PRN's used: Atarax, ativan, xanax. Therapeutic interventions:Therapeutic interventions: provided clear and simple instructions, reassured pt of safety, medication administration/education/monitoring; Maintained Q 15 min safety checks. Restraints/seclusion/emergency medication: N/A Justification of Continued Inpatient Treatment: Requires interruption of current crisis, medication adjustments, and a safe and supportive environment to prevent readmission.
[2019-04-14 08:00] VITALS: BP 103/63
[2019-04-14] MEDS ORDERED: buPROPion SR 150mg tablet PO SCH (08:00)
[2019-04-14] MEDS: buprenorphine/naloxone 8MG-2MG SUBlingual film SL SCH ×2 (08:32→17:00)
[2019-04-14] MEDS: nicotine 21mg patch - 24 hr TD SCH (08:33)
[2019-04-14] MEDS ORDERED: oxcarbazepine 150mg tablet PO ONE (15:05)
[2019-04-14] MEDS ORDERED: buPROPion SR 150mg tablet PO ONE (15:05)
[2019-04-14] MEDS: LORazepam 1 MG tablet PO PRN (17:07)
--- NOTE | 2019-04-14 17:13 | NUR ---
Nursing Progress Note: Legal hold: 5150 Client on voluntary/involuntary status for DTS. Report received from STACI Montanez with use of SBAR. Why are they here: Pt admitted at 1500 for DTS from our emergency department on 5150. Pt states she feels like ending her life and is constantly depressed everyday all day. Pt experienced panic attacks 2 weeks for 20 minutes. _t has tried to kill herself by OD on medications 2 years ago and was hospitalized a week. Pt tried to OD on Heroin Tuesday but passed out. Pt states she sits in front of her fathers gun acabinet tryibng to figure out how to get into in so she can use a gun to kill herself. Assessment What has happened this shift: Patient awake in the Community Room coloring and waiting for lunch. She was started on two medications tonight and will be given a new medication tonight. She asked for "information sheets" on two and was given them. Also, the Suboxone was reduced by half. Pt is unsure if she should continue the medication after discharge. She does like that it has taken away her cravings. S/I, H/I:Denies. A/VH:Denies Sleep: Up all shift ADL's: Appears to have recently showered Group attendance: She went outside with the group Were Meds taken:Patient is medication compliant. Any med S/E None observed. Mental Status Exam Appearance:Well groomed, wearing green scrubs. Eye contact:Direct. Behavior:Quiet and cooperative. Speech: Normal tone, rate, and rhythm. Mood:Good mood, save for some depression and anxiety. Affect:Quiet. Thought process: getting into rehab, treatment for depression. Thought Content: Linear. Cognition: Good. Insight:Fair. Judgment:Poor. Interventions PRN's used: Ativan Therapeutic interventions:Therapeutic interventions: provided clear and simple instructions, reassured pt of safety, medication administration/education/monitoring; Maintained Q 15 min safety checks. Restraints/seclusion/emergency medication: N/A Justification of Continued Inpatient Treatment: Requires interruption of current crisis, medication adjustments, and a safe and supportive environment to prevent readmission.
[2019-04-14 19:00] VITALS: BP 115/71
[2019-04-14] MEDS: buPROPion SR 150mg tablet PO SCH (20:00)
[2019-04-14] MEDS: oxcarbazepine 150mg tablet PO SCH (21:18)
[2019-04-14] MEDS: temazepam 15mg capsule PO PRN (21:18)
[2019-04-14] MEDS: mirtazapine 15mg tablet PO SCH (21:18)
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
[2019-04-14] MEDS ORDERED: temazepam 15mg capsule PO PRN (23:40)
[2019-04-15] MEDS ORDERED: temazepam 15mg capsule PO ONE (00:10)
--- NOTE | 2019-04-15 01:23 | NUR ---
Nursing Progress Note: Legal hold: 5150 Client on voluntary/involuntary status for DTS. Report received from STACI Gilman with use of SBAR. Why are they here: Pt admitted at 1500 for DTS from our emergency department on 5150. Pt states she feels like ending her life and is constantly depressed everyday all day. Pt experienced panic attacks 2 weeks for 20 minutes. _t has tried to kill herself by OD on medications 2 years ago and was hospitalized a week. Pt tried to OD on Heroin Tuesday but passed out. Pt states she sits in front of her fathers gun acabinet tryibng to figure out how to get into in so she can use a gun to kill herself. Assessment What has happened this shift: The patient is visiting her parents following shift change. Family interactions went well. Patients parents introduced themselves to this marketing underwriter. Patient is well oriented. Patient is well oriented. She states depression is still present but better. She denies suicidal ideation or H/I at this time. She denies hallucinations. Patient states depression remains. Patient states she is looking forward to rehab out of town. Patients suboxone has been increased by half. Sleeping medication has been added to patients EMR. This patient is friendly with staff. She is medication compliant. Mild anxiety resides. Patient exhibits good coping skills. Patient desired to be moved to a new room which was done. S/I, H/I:Denies. A/VH:Denies Sleep: Insomnia present, Restoril given and repeated. ADL's: Independent. Group attendance:None on nights. Were Meds taken:Patient is medication compliant. Any med S/E None observed. Mental Status Exam Appearance:Well groomed, wearing green scrubs. Eye contact:Direct. Behavior:Quiet and cooperative. Speech: Normal tone, rate, and rhythm. Mood:Good mood, save for some depression and anxiety. Affect:Quiet. Thought process: getting into rehab, treatment for depression. Thought Content: Linear. Cognition: Good. Insight:Fair. Judgment:Poor. Interventions PRN's used: Ativan Therapeutic interventions:Therapeutic interventions: provided clear and simple instructions, reassured pt of safety, medication administration/education/monitoring; Maintained Q 15 min safety checks. Restraints/seclusion/emergency medication: N/A Justification of Continued Inpatient Treatment: Requires interruption of current crisis, medication adjustments, and a safe and supportive environment to prevent readmission.
[2019-04-15 07:02] LABS: CHOL/HDL RATIO 4.3 (0.00-4.99); CHOLESTEROL 153 MG/DL (0-200); HDL CHOLESTEROL 36 MG/DL (35-60); LDL CHOLESTEROL 102 MG/DL (50-100); TRIGLYCERIDES 207 MG/DL (20-135)
[2019-04-15 07:59] VITALS: BP 101/55
[2019-04-15] MEDS: buPROPion SR 150mg tablet PO SCH ×2 (08:31→12:53)
[2019-04-15] MEDS: oxcarbazepine 150mg tablet PO SCH ×2 (08:31→20:22)
[2019-04-15] MEDS: buprenorphine/naloxone 8MG-2MG SUBlingual film SL SCH ×2 (08:45→17:19)
[2019-04-15] MEDS: nicotine 21mg patch - 24 hr TD SCH (08:46)
--- NOTE | 2019-04-15 15:29 | NUR ---
Nursing Progress Note: Legal hold: 5149 Client on voluntary/involuntary status for DTS. Report received from CASSIUS Banda with use of SBAR. Why are they here: Pt admitted at 1500 for DTS from our emergency department on 5149. Pt states she feels like ending her life and is constantly depressed everyday all day. Pt experienced panic attacks 2 weeks for 20 minutes. Pt has tried to kill herself by OD on medications 2 years ago and was hospitalized for a week. Pt tried to OD on heroin on Tuesday, but passed out. Pt states she sat in front of her father's gun cabinet trying to figure out how to get into the cabinet so she could use a gun to kill herself. Pt noted to have self-inflicted superficial scratches on bilateral shoulders and her R upper thigh. Assessment What has happened this shift: Pt sleeping at change of shift. She was compliant with medication adminstration. Pt pleasant and cooperative with assessment. She reports she had difficulty going to sleep last night. She shares she feels depressed and has a general feeling of hurting herself that does not go away. When asked if she had a plan to hurt herself she responded, "my plan is to get better." She denied A/V H. The pt shared her desire to go to a long-term rehab program for her substance abuse. The pt reported that she has not had a BM for two days and Milk of Magnesia was administered. She attended the AM group. S/I, H/I: Passive SI A/VH:Denies Sleep: Napped during the morning ADL's: Independent Group attendance: Attended AM group Were Meds taken: Yes Any med S/E None noted or observed. Mental Status Exam Appearance: Neat and clean Eye contact:Direct. Behavior: Cooperative Speech: Normal rate and rhythm Mood: Little depressed Affect: Constricted Thought process: Linear and connected Thought Content: Plans to get better and wants to go to rehab. Cognition: A&Ox4 Insight:Fair. Judgment:Poor. Interventions PRN's used: Milk of Magnesia Therapeutic interventions: 1:1 assessment, establishment of rapport, active listening, reality orientation, medication administration/education/monitoring, encouragement to perform personal care and attend groups, maintained Q 15 min safety checks. Restraints/seclusion/emergency medication: N/A Justification of Continued Inpatient Treatment: Requires interruption of current crisis, medication adjustments, and a safe and supportive environment to prevent readmission. Addendum: 04/15/19 at 1759 by Sepideh Cleveland RN Amend: Pt reports hearing voices, pt shares she is frightened of the voices and scared they are starting again. She said she has had AH in the past, but not recently. Notified Dr. Mendosa, awaiting new orders.
[2019-04-15] MEDS ORDERED: LORazepam 1 MG tablet PO ONE (18:10)
[2019-04-15] MEDS ORDERED: OLANZAPINE 5 MG TABLET PO ONE (18:10)
[2019-04-15] MEDS: hydrOXYzine 25 MG tablet PO PRN ×2 (18:46→20:37)
[2019-04-15 19:50] VITALS: BP 111/76
[2019-04-15] MEDS: mirtazapine 15mg tablet PO SCH (20:23)
[2019-04-15] MEDS: temazepam 15mg capsule PO PRN (20:37)
--- NOTE | 2019-04-15 23:02 | NUR ---
Nursing Progress Note: Legal hold: 5149 Client on voluntary/involuntary status for DTS. Report received from STACI Meyer with use of SBAR. Why are they here: Pt admitted at 1500 for DTS from our emergency department on 5149. Pt states she feels like ending her life and is constantly depressed everyday all day. Pt experienced panic attacks 2 weeks for 20 minutes. _t has tried to kill herself by OD on medications 2 years ago and was hospitalized a week. Pt tried to OD on Heroin Tuesday but passed out. Pt states she sits in front of her fathers gun acabinet tryibng to figure out how to get into in so she can use a gun to kill herself. Assessment What has happened this shift: The patient is visiting her parents following shift change. Family interactions went well and pt appeared to be happy to have visitors. after visiting with parents, pt asked for a prn for anxiety. pt given atarax and then ativan approx 30 min later. 1.5 hours later pt asked for another prn, but was informed that she just had her prn and would need to utilize some coping skills for now. pt then stated that Dr Zavala told her that she can call him if she needed more, but was told that she can't call Dr. Zavala, as that is not appropriate. pt then asked 3 other rn's for more meds, but was given the same answer. pt was eventually given her hs meds and went to sleep shortly after. Pt was cooperative during and endorses hearing voices that say to her "secret." S/I, H/I:Denies. A/VH:voices that repeatedly mention a "secret." Sleep: sleeping now ADL's: Independent. Group attendance:None on nights. Were Meds taken:Patient is medication compliant. Any med S/E None observed. Mental Status Exam Appearance:Well groomed, wearing green scrubs. Eye contact:Direct. Behavior:Quiet and cooperative. Speech: Normal tone, rate, and rhythm. Mood:Good mood, save for some depression and anxiety. Affect:Quiet. Thought process: getting into rehab, treatment for depression. Thought Content: Linear. Cognition: Good. Insight:Fair. Judgment:Poor. Interventions PRN's used: Ativan, atarax, restoril Therapeutic interventions:Therapeutic interventions: provided clear and simple instructions, reassured pt of safety, medication administration/education/monitoring; Maintained Q 15 min safety checks. Restraints/seclusion/emergency medication: N/A Justification of Continued Inpatient Treatment: Requires interruption of current crisis, medication adjustments, and a safe and supportive environment to prevent readmission.
[2019-04-16 08:00] VITALS: BP 97/60
[2019-04-16] MEDS: nicotine 21mg patch - 24 hr TD SCH (08:31)
[2019-04-16] MEDS: buprenorphine/naloxone 8MG-2MG SUBlingual film SL SCH ×2 (08:32→17:59)
[2019-04-16] MEDS: buPROPion SR 150mg tablet PO SCH ×2 (08:32→13:46)
[2019-04-16] MEDS: oxcarbazepine 150mg tablet PO SCH ×2 (08:32→20:26)
--- NOTE | 2019-04-16 15:58 | NUR ---
Nursing Progress Note: Legal hold: 515 Client on voluntary/involuntary status for DTS. Report received from CASSIUS Banda with use of SBAR. Why are they here: Pt admitted at 1500 for DTS from our emergency department on 5149. Pt states she feels like ending her life and is constantly depressed everyday all day. Pt experienced panic attacks 2 weeks for 20 minutes. Pt has tried to kill herself by OD on medications 2 years ago and was hospitalized for a week. Pt tried to OD on heroin on Tuesday, but passed out. Pt states she sat in front of her father's gun cabinet trying to figure out how to get into the cabinet so she could use a gun to kill herself. Pt noted to have self-inflicted superficial scratches on bilateral shoulders and her R upper thigh. Assessment What has happened this shift: Pt sleeping at change of shift and up for breakfast. Patient is compliant with medication administration. RN spoke to patient in room. RN asked patient about suicidal ideation patient sat and thought for several moments and then said no. Patient is very depressed and wants to go to an inpatient rehab but said she has not spoken to a social security assessor as of yet. The pt shared her desire to go to a long-term rehab program for her substance abuse. Patient went to morning group and slept through most of afternoon group but went to it close to the end. Patient appears to want help and wants to get better. S/I, H/I: Denies A/VH:Denies Sleep: Napped during the morning ADL's: Independent Group attendance: Attended morning group and part of afternoon group. Were Meds taken: Yes Any med S/E None noted or observed. Mental Status Exam Appearance: Neat and clean Eye contact:Direct. Behavior: Cooperative Speech: Normal rate and rhythm Mood: Depressed Affect: Depressed Thought process: Thought Content: Wants to get better and wants to go to rehab. Cognition: A&Ox4 Insight:Fair. Judgment:Poor. Interventions PRN's used: None as of this writing. Therapeutic interventions: 1:1 assessment, establishment of rapport, active listening, reality orientation, medication administration/education/monitoring, encouragement to perform personal care and attend groups, maintained Q 15 min safety checks. Restraints/seclusion/emergency medication: N/A Justification of Continued Inpatient Treatment: Requires interruption of current crisis, medication adjustments, and a safe and supportive environment to prevent readmission. Addendum: 04/15/19 at 1759 by Sepideh Cleveland RN Amend: Pt reports hearing voices, pt shares she is frightened of the voices and scared they are starting again. She said she has had AH in the past, but not recently. Notified Dr. Mendosa, awaiting new orders.
[2019-04-16] MEDS: LORazepam 1 MG tablet PO PRN (19:01)
[2019-04-16 20:00] VITALS: BP 126/77
[2019-04-16] MEDS: mirtazapine 15mg tablet PO SCH (20:27)
[2019-04-16] MEDS: temazepam 15mg capsule PO PRN (20:27)
[2019-04-16] MEDS: hydrOXYzine 25 MG tablet PO PRN (22:30)
--- NOTE | 2019-04-17 00:36 | NUR ---
Nursing Progress Note: Legal hold: 515 Client on voluntary/involuntary status for DTS. Report received from CASSIUS Meyer with use of SBAR. Why are they here: Pt admitted at 1500 for DTS from our emergency department on 5149. Pt states she feels like ending her life and is constantly depressed everyday all day. Pt experienced panic attacks 2 weeks for 20 minutes. Pt has tried to kill herself by OD on medications 2 years ago and was hospitalized for a week. Pt tried to OD on heroin on Tuesday, but passed out. Pt states she sat in front of her father's gun cabinet trying to figure out how to get into the cabinet so she could use a gun to kill herself. Pt noted to have self-inflicted superficial scratches on bilateral shoulders and her R upper thigh. Assessment What has happened this shift: Pt reading in room at change of shift. Pt was friendly and talkative during 1:1. She is expressing a strong desire to dc to a rehab facility, preferably one that can also help with her mental health struggles. She reports having supportive parents who are willing and able to assist her getting into and paying for a rehab program. pt reports that she has a hx of using heroin as well as another type of benzo that "a friend would buy off the black market." Pt c/o insomnia at night but sleep records show at least 7 hours last night. pt denies feeling suicidal and denies hearing voices today. S/I, H/I: Denies A/VH:Denies Sleep: asleep now ADL's: Independent Group attendance: snack Were Meds taken: Yes Any med S/E None noted or observed. Mental Status Exam Appearance: Neat and clean Eye contact:Direct. Behavior: Cooperative Speech: Normal rate and rhythm Mood: Depressed Affect: Depressed Thought process: Thought Content: Wants to get better and wants to go to rehab. Cognition: A&Ox4 Insight:Fair. Judgment:Poor. Interventions PRN's used: ativan, atarax Therapeutic interventions: 1:1 assessment, establishment of rapport, active listening, reality orientation, medication administration/education/monitoring, encouragement to perform personal care and attend groups, maintained Q 15 min safety checks. Restraints/seclusion/emergency medication: N/A Justification of Continued Inpatient Treatment: Requires interruption of current crisis, medication adjustments, and a safe and supportive environment to prevent readmission.
[2019-04-17 08:00] VITALS: BP 103/65
[2019-04-17] MEDS: oxcarbazepine 150mg tablet PO SCH ×2 (09:06→20:09)
[2019-04-17] MEDS: nicotine 21mg patch - 24 hr TD SCH (09:06)
[2019-04-17] MEDS: buPROPion SR 150mg tablet PO SCH ×2 (09:06→13:17)
[2019-04-17] MEDS: buprenorphine/naloxone 8MG-2MG SUBlingual film SL SCH (09:07)
--- NOTE | 2019-04-17 12:22 | NUR ---
Initial: Pt admit w/ depression and hx heroin abuse. PO 75-100% meals meeting needs. LBM 04/16. No nutrition concerns at this time. Will continue to monitor. Rec: 1. continue regular diet 2. routine bowel care Addendum: 04/17/19 at [address] Amended: Links added.
--- NOTE | 2019-04-17 14:29 | NUR ---
Discharge Planning Met with Ct to discuss plans for discharge. She reported she would like to go to an in-patient rehab that can treat her mental health and addiction concerns. She gave permission for job specification writer to call her mother, Dena (ph# [phone]). Called Dena who reported she would like Ct to discharge to a "clean and safe" in-patient rehab. Asked her to clarify what that means. She reported she did not like her daughter going to [facility] because there were "trashy" people there and the location was not in a good neighborhood. She reported she can put Ct on her insurance, however, it will not be active until Jun and she indicated she does not have very good insurance. Informed her [facility] does not currently pay for in-patient tx. Researched a couple places: [facility] and [facility]. Informed Ct of the cost of these places. She reported she will not be able to go there due to the cost. She reported she will just continue to see Dr Angel. She reported she wants to go to therapy at [facility] and get a job. Attempted to call mom back to inform her of the cost of the programs. Left message. SANKET Juarez
[2019-04-17] MEDS ORDERED: buprenorphine/naloxone 8mg/2mg SL tablet SL ONE (17:35)
[2019-04-17] MEDS: LORazepam 1 MG tablet PO PRN (18:49)
[2019-04-17] MEDS: mirtazapine 15mg tablet PO SCH (20:09)
[2019-04-17 20:11] VITALS: BP 146/75
[2019-04-17] MEDS: temazepam 15mg capsule PO PRN (21:18)
--- NOTE | 2019-04-18 01:16 | NUR ---
Nursing Progress Note: Legal hold: 515 Client on voluntary/involuntary status for DTS. Report received from CASSIUS Meyer with use of SBAR. Why are they here: Pt admitted at 1500 for DTS from our emergency department on 5149. Pt states she feels like ending her life and is constantly depressed everyday all day. Pt experienced panic attacks 2 weeks for 20 minutes. Pt has tried to kill herself by OD on medications 2 years ago and was hospitalized for a week. Pt tried to OD on heroin on Tuesday, but passed out. Pt states she sat in front of her father's gun cabinet trying to figure out how to get into the cabinet so she could use a gun to kill herself. Pt noted to have self-inflicted superficial scratches on bilateral shoulders and her R upper thigh. Assessment What has happened this shift: Pt reading in room at change of shift. Pt was friendly and talkative during 1:1. Pt reports anxiety surrounding her dc plan and difficulty finding a place that will take medi-kya. pt is fixated on medications, stating that she "needs benzos to knock me out." pt expressed guilt about "using resources here," but was reassured that she is utilizing resources as they are intended. Pt denied hearing any voices today. S/I, H/I: Denies A/VH:Denies Sleep: asleep now ADL's: Independent Group attendance: snack Were Meds taken: Yes Any med S/E None noted or observed. Mental Status Exam Appearance: Neat and clean Eye contact:Direct. Behavior: Cooperative Speech: Normal rate and rhythm Mood: Depressed Affect: Depressed Thought process: Thought Content: Wants to get better and wants to go to rehab. Cognition: A&Ox4 Insight:Fair. Judgment:Poor. Interventions PRN's used: ativan Therapeutic interventions: 1:1 assessment, establishment of rapport, active listening, reality orientation, medication administration/education/monitoring, encouragement to perform personal care and attend groups, maintained Q 15 min safety checks. Restraints/seclusion/emergency medication: N/A Justification of Continued Inpatient Treatment: Requires interruption of current crisis, medication adjustments, and a safe and supportive environment to prevent readmission.
[2019-04-18] MEDS: buprenorphine/naloxone 8MG-2MG SUBlingual film SL SCH ×3 (07:30→17:56)
[2019-04-18 08:18] VITALS: BP 101/59
[2019-04-18] MEDS: buPROPion SR 150mg tablet PO SCH ×2 (08:54→13:14)
[2019-04-18] MEDS: nicotine 21mg patch - 24 hr TD SCH (08:54)
[2019-04-18] MEDS: oxcarbazepine 150mg tablet PO SCH ×2 (08:54→20:23)
[2019-04-18] MEDS: LORazepam 1 MG tablet PO PRN (13:21)
[2019-04-18] MEDS: acetaminophen 325mg tablet PO PRN (13:21)
--- NOTE | 2019-04-18 13:43 | NUR ---
Discharge Planning: Ct requested a list of doctors she can go to that Rx suboxone. Provided her with a list and informed her that Dr Angel does not prescribe it. She had a list of in-patient rehabs that she and her mom believed accept [facility]. She reported she is going to call them today. Returned mother's call (Dena-ph# [phone]) who inquired again about in-patient tx. Informed her that [facility] does not pay for in-patient at this time, however, there are out-patient options. She reported Ct made an appt with [facility] for Tue04/23/19 at 2:40 pm for suboxone. Met with Ct again and confirmed her appt with [facility]. She reported she would like to discharge on Tuesday afternoon after her parents are off work so she can be home with them over the weekend. She expressed concern about being home by herself while they are at work. Ct also requested phone # for [facility]. Provided her the phone #. SANKET Juarez
[2019-04-18] MEDS: hydrOXYzine 25 MG tablet PO PRN ×3 (14:34→21:28)
--- NOTE | 2019-04-18 17:55 | NUR ---
Nursing Progress Note: Legal hold: VOL Client on voluntary status for DTS. Report received from CASSIUS Pedro with use of SBAR. Why are they here: Pt admitted at 1500 for DTS from our emergency department on 5149. Pt states she feels like ending her life and is constantly depressed everyday all day. Pt experienced panic attacks 2 weeks for 20 minutes. Pt has tried to kill herself by OD on medications 2 years ago and was hospitalized for a week. Pt tried to OD on heroin on Tuesday, but passed out. Pt states she sat in front of her father's gun cabinet trying to figure out how to get into the cabinet so she could use a gun to kill herself. Pt noted to have self-inflicted superficial scratches on bilateral shoulders and her R upper thigh. Assessment What has happened this shift: Pt is resting in bed peacefully at change of shift. She is pleasant and cooperative with care and takes all of her medications without incident and as directed. She denies SI/HI/ A/VH. She reports that she would like to go home today, but after having discussion with ALDEN Mcgowan, she is hoping to leave on Tuesday from the unit. She states that she is "feeling better. Later in the morning, she reports anxiety of 6/10, stating that she is jittery and feeling tense, she requests Ativan for this and Tylenol PRN for a ROSEN with pain of 4/10. After lunch, Pt states that she is feeling like her lips are "stinging" encouraged Pt to apply lip balm to reddened, chapped lips". Pt reports that she feels like she is having a "reaction to something" and requests a PRN for this. Lungs CTA, Pt is in no observed distress. Discussed this with DAYSI Perry and gave Atarax PRN per conversation. Will continue to monitor. S/I, H/I: Denies A/VH:Denies Sleep: rests intermittently throughout the day ADL's: Independent Group attendance:no Were Meds taken: Yes Any med S/E None noted or observed. Mental Status Exam Appearance: street clothing, hair unkempt Eye contact: Direct. Behavior: Cooperative, isolative Speech: Normal rate and rhythm Mood: Depressed Affect: flat Thought process: linear Thought content: " I think I am ready to go home", I have anxiety and a headache". Addendum: 04/18/19 at 2007 by Zaira Denny RN Therapeutic interventions: 1:1 assessment, establishment of rapport, active listening, reality orientation, medication administration/education/monitoring, encouragement to perform personal care and attend groups, maintained Q 15 min safety checks. Restraints/seclusion/emergency medication: N/A Justification of Continued Inpatient Treatment: Requires interruption of current crisis, medication adjustments, and a safe and supportive environment to prevent readmission.
[2019-04-18 20:00] VITALS: BP 127/80
[2019-04-18] MEDS: temazepam 15mg capsule PO PRN (20:22)
[2019-04-18] MEDS: mirtazapine 15mg tablet PO SCH (20:23)
--- NOTE | 2019-04-19 01:22 | NUR ---
Nursing Progress Note: Legal hold: VOL Client on voluntary status for DTS. Report received from STACI Balderas Why are they here: Pt admitted at 1500 for DTS from our emergency department on 0. Pt states she feels like ending her life and is constantly depressed everyday all day. Pt experienced panic attacks 2 weeks for 20 minutes. Pt has tried to kill herself by OD on medications 2 years ago and was hospitalized for a week. Pt tried to OD on heroin on Tuesday, but passed out. Pt states she sat in front of her father's gun cabinet trying to figure out how to get into the cabinet so she could use a gun to kill herself. Pt noted to have self-inflicted superficial scratches on bilateral shoulders and her R upper thigh. Assessment What has happened this shift: Pt was cooperative and talkative during shift change. Pt was observed in the group room conversing with other patients. Pt attended HS snack. During 1:1 assessment pt was very friendly and cooperative. Pt. denies any S/I or H/I. Was isolative after attending evening snack. Pt. stated that she did not attend any group meetings because she feels anxious about talking to people and prefers to be alone. Pt. was given two doses of Atrax (MRX1 order), along with temazepam for sleep. Nicotine patch was removed. Pt. slept throughout the night without any complaints. S/I, H/I: Denies A/VH:Denies Sleep: See sleep assessment ADL's: Independent Group attendance:no Were Meds taken: Yes Any med S/E None noted or observed. Mental Status Exam Appearance: street clothing Eye contact: Direct. Behavior: Cooperative, isolative Speech: Normal rate and rhythm Mood: Depressed Affect: flat Thought process: linear Thought content: preoccupation with anxiety Therapeutic interventions: 1:1 assessment, establishment of rapport, active listening, reality orientation, medication administration/education/monitoring, maintained Q 15 min safety checks. Restraints/seclusion/emergency medication: N/A Justification of Continued Inpatient Treatment: Requires interruption of current crisis, medication adjustments, and a safe and supportive environment to prevent readmission.
[2019-04-19] MEDS: oxcarbazepine 150mg tablet PO SCH ×2 (07:56→20:24)
[2019-04-19] MEDS: buprenorphine/naloxone 8MG-2MG SUBlingual film SL SCH ×2 (07:56→17:04)
[2019-04-19] MEDS: buPROPion SR 150mg tablet PO SCH ×2 (07:56→12:21)
[2019-04-19] MEDS: nicotine 21mg patch - 24 hr TD SCH (07:56)
[2019-04-19 08:04] VITALS: BP 99/59
[2019-04-19] MEDS: LORazepam 1 MG tablet PO PRN ×2 (10:29→12:21)
[2019-04-19] MEDS: acetaminophen 325mg tablet PO PRN (10:30)
--- NOTE | 2019-04-19 15:29 | NUR ---
Discharge Planning: Met with Ct and spoke to her mom, Dena, on the phone regarding Ct going home tomorrow. Dena reported she can pear picker Ct after she gets off work at 3:15 tomorrow. SANKET Juarez
[2019-04-19] MEDS: hydrOXYzine 25 MG tablet PO PRN (16:37)
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
[2019-04-19 20:00] VITALS: BP 113/79
[2019-04-19] MEDS: mirtazapine 15mg tablet PO SCH (20:24)
[2019-04-19] MEDS: temazepam 15mg capsule PO PRN (21:20)
--- NOTE | 2019-04-20 00:03 | NUR ---
Nursing Progress Note: Legal hold: 515 Client on voluntary for DTS. Report received from CASSIUS Gilman with use of SBAR. Why are they here: Pt admitted at 1500 for DTS from our emergency department on 5149. Pt states she feels like ending her life and is constantly depressed everyday all day. Pt experienced panic attacks 2 weeks for 20 minutes. Pt has tried to kill herself by OD on medications 2 years ago and was hospitalized for a week. Pt tried to OD on heroin on Tuesday, but passed out. Pt states she sat in front of her father's gun cabinet trying to figure out how to get into the cabinet so she could use a gun to kill herself. Pt noted to have self-inflicted superficial scratches on bilateral shoulders and her R upper thigh. Assessment What has happened this shift: During change of shift, pt was in activity area. She remained there most of the evening. Pt had visitors which she claims were her parents. Patient was very pleasant and talkative during 1:1 assessment. Pt was very cooperative and stated that she was looking forward to being discharged tomorrow. Pt states that she feels safe at home with parents and wants to reconnect with friends now that her boyfriend is out of the way. Pt attended the activity room for snack one more time and was observed talking to other patients. Pt states that she feels less anxious and did not need a dose of Atarax. Slept for most of the night. Will continue to monitor. S/I, H/I: Denies A/VH:Denies Sleep: see sleep assessment, Restoril administered ADL's: Independent Group attendance: snack Were Meds taken: Yes Any med S/E None noted or observed. Mental Status Exam Appearance: Neat and clean, dressed in street clothes Eye contact:Direct. Behavior: Calm and Cooperative Speech: Normal rate and rhythm Mood: Moderate Affect: Blunted Thought process: linear and connected. Thought Content: preoccupied on going home tomorrow Cognition: A&Ox4 Insight:Fair. Judgment: Fair Interventions PRN's used: Restoril Therapeutic interventions: 1:1 assessment, establishment of rapport, active listening, reality orientation, medication administration/education/monitoring, maintained Q 15 min safety checks. Restraints/seclusion/emergency medication: N/A Justification of Continued Inpatient Treatment: Requires interruption of current crisis, medication adjustments, and a safe and supportive environment to prevent readmission.
[2019-04-20] MEDS: buprenorphine/naloxone 8MG-2MG SUBlingual film SL SCH (08:30)
[2019-04-20] MEDS: nicotine 21mg patch - 24 hr TD SCH (08:30)
[2019-04-20] MEDS: buPROPion SR 150mg tablet PO SCH ×2 (08:31→13:33)
[2019-04-20] MEDS: oxcarbazepine 150mg tablet PO SCH (08:31)
[2019-04-20 10:37] VITALS: BP 111/54
[2019-04-20] MEDS: LORazepam 1 MG tablet PO PRN (14:17)
[2019-04-20] MEDS ORDERED: TEMA30CA PO (14:33)
[2019-04-20] MEDS ORDERED: ATI1T PO (14:33)
[2019-04-20] MEDS ORDERED: NICO-687 TD (14:33)
[2019-04-20] MEDS ORDERED: MIRT30TA8 PO (14:33)
[2019-04-20] MEDS ORDERED: BUPR1FIL3 SL (14:33)
[2019-04-20] MEDS ORDERED: HYDR-3686 PO (14:33)
[2019-04-20] MEDS ORDERED: OXCA150T14 PO (14:33)
[2019-04-20] MEDS ORDERED: BUPR-84 PO (14:33)
--- NOTE | 2019-04-20 15:50 | NUR ---
DISCHARGE NOTE The patient was discharged at 1550. The patient states she is ready to go home and no longer having suicidal thoughts. She was discharged to home with all her prescriptions, belongings and instructions. She was picked up by her mother and escorted to the lobby by SHAR Ellis.
== END 2019-04-20 15:53 | disposition home or self-care (01) | DRG 751 ==
LOC: ADULT MH 15:12
PROVIDERS: ADMIT Psychiatry & Neurology Psychiatry; ATTEND Psychiatry & Neurology Psychiatry
DX: F33.2 Major depressive disorder, recurrent severe without psychotic features (principal); R45.851 Suicidal ideations; F11.20 Opioid dependence, uncomplicated; E11.9 Type 2 diabetes mellitus without complications; F12.90 Cannabis use, unspecified, uncomplicated; F14.10 Cocaine abuse, uncomplicated; F60.9 Personality disorder, unspecified; F17.210 Nicotine dependence, cigarettes, uncomplicated; F41.0 Panic disorder [episodic paroxysmal anxiety]; I10 Essential (primary) hypertension; J45.909 Unspecified asthma, uncomplicated; R45.850 Homicidal ideations; Z79.899 Other long term (current) drug therapy; Z81.8 Family history of other mental and behavioral disorders
CPT/HCPCS: 36415; 80061; 83036; 87081; Z7610

== ENCOUNTER 2019-05-28 13:27 | Emergency (ER) | payer MEDICAID ==
[~2019-05-28] VITALS: Ht 160 cm; Wt 65.0 kg
[~2019-05-28 13:27] MED LIST changes: -ALPR-624 PO; +ATI1T PO; +BUPR-84 PO; -BUPR150T6 PO; +HYDR-3686 PO; +MIRT30TA8 PO; +NICO-687 TD; +OXCA150T14 PO; +TEMA30CA PO; -TEMA30CA5 PO
[2019-05-28 13:42] VITALS: BP 123/70
== END 2019-05-28 15:48 | disposition home or self-care (01) ==
LOC: ER 13:28
DX: S62.306A Unspecified fracture of fifth metacarpal bone, right hand, initial encounter for closed fracture (principal); F31.9 Bipolar disorder, unspecified; F12.90 Cannabis use, unspecified, uncomplicated; F14.90 Cocaine use, unspecified, uncomplicated; F11.90 Opioid use, unspecified, uncomplicated; Z86.69 Personal history of other diseases of the nervous system and sense organs; Z79.899 Other long term (current) drug therapy; W26.8XXA Contact with other sharp object(s), not elsewhere classified, initial encounter; Y93.89 Activity, other specified; Y92.89 Other specified places as the place of occurrence of the external cause; Y99.8 Other external cause status
CPT/HCPCS: 26605; 73120; 73130; 99284

== ENCOUNTER 2019-06-05 09:22 | Outpatient (CLI) | payer MEDICAID | END 2019-06-05 10:45 | disposition home or self-care (01) | LOC: ORTHO 09:22 | PROVIDERS: ATTEND Nurse Practitioner | DX: S62.336A Displaced fracture of neck of fifth metacarpal bone, right hand, initial encounter for closed fracture (principal); F31.9 Bipolar disorder, unspecified; F12.90 Cannabis use, unspecified, uncomplicated; F14.90 Cocaine use, unspecified, uncomplicated; F11.90 Opioid use, unspecified, uncomplicated; Z79.899 Other long term (current) drug therapy; W26.8XXA Contact with other sharp object(s), not elsewhere classified, initial encounter; Y93.89 Activity, other specified; Y92.89 Other specified places as the place of occurrence of the external cause; Y99.8 Other external cause status | CPT/HCPCS: 73130; G0463 ==

== ENCOUNTER 2021-02-16 19:40 | Emergency (ER) | payer MEDICAID ==
[~2021-02-16] VITALS: Ht 160 cm; Wt 56.2 kg
[~2021-02-16 19:40] MED LIST changes: -ATI1T PO; -BUPR-84 PO; -BUPR1FIL3 SL; +FER325T PO; +LURA60TA PO; -MIRT30TA8 PO; +NICO-668 BC; -OXCA150T14 PO; -TEMA30CA PO; +VENL150T3 PO; +ZOLP5TAB8 PO
[2021-02-16 20:04] VITALS: BP 117/81
--- NOTE | 2021-02-16 21:22 | NUR ---
Spoke with Jerry case #[id number] stated the homer will call back as Officer Remfer is no longer on duty.
--- NOTE | 2021-02-16 21:26 | NUR ---
Officer interviewing patient at this time.
--- NOTE | 2021-02-16 21:39 | NUR ---
Patient was offered an advocate from [facility]- states she would not like one at this time. Prefers to simply keep her mother at bedside with her.
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
--- NOTE | 2021-02-17 00:14 | NUR ---
[facility] advocate at bedside with patient during doctor examination.
[2021-02-17] MEDS ORDERED: CefTRIAXone 1000mg IM Kit (w/lidocaine diluent) IM ONE (00:50)
[2021-02-17] MEDS ORDERED: azithromycin 250mg tablet PO ONE (00:50)
[2021-02-17] MEDS ORDERED: LEVONORGESTREL 1.5 MG (Plan B One-Step) TABLET PO (00:50)
[2021-02-17] MEDS ORDERED: metroNIDAZOLE 500mg tablet PO ONE (00:50)
[2021-02-17] MEDS ORDERED: LORazepam 1 MG tablet PO ONE (01:05)
== END 2021-02-17 05:20 | disposition home or self-care (01) ==
LOC: ER 19:41
DX: T74.21XA Adult sexual abuse, confirmed, initial encounter (principal); G40.909 Epilepsy, unspecified, not intractable, without status epilepticus; Z79.899 Other long term (current) drug therapy; Y07.9 Unspecified perpetrator of maltreatment and neglect
CPT/HCPCS: 96372; 99284; J0696; J3490

== ENCOUNTER 2021-03-16 23:46 | Emergency (ER) | payer MEDICAID ==
[~2021-03-16] VITALS: Ht 160 cm; Wt 54.5 kg
--- NOTE | 2021-03-17 00:25 | NUR ---
pt refused IV placement, vss monitoring, and cardiac monitoring. spoke with parents, will arrive within 45 minutes.
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
[2021-03-17 01:50] VITALS: BP 112/64
== END 2021-03-17 01:52 | disposition home or self-care (01) ==
LOC: ER 23:47
DX: T40.601A Poisoning by unspecified narcotics, accidental (unintentional), initial encounter (principal); F31.9 Bipolar disorder, unspecified; Z86.69 Personal history of other diseases of the nervous system and sense organs; Z79.899 Other long term (current) drug therapy; Y92.89 Other specified places as the place of occurrence of the external cause
CPT/HCPCS: 99283